=== PATIENT | male | born 1960 | race Caucasian/White ===

== ENCOUNTER → 2016-09-07 | Outpatient (REF) | LOC: WSOH 09:32 | DX: Z02.4 Encounter for examination for driving license (principal) | CPT/HCPCS: G0463 ==

== ENCOUNTER → 2016-09-29 | Outpatient (CLI) | payer BC | LOC: COL.RAD 08:00 | DX: M25.511 Pain in right shoulder (principal) | CPT/HCPCS: J3301; Q9967 ==

== ENCOUNTER → 2016-10-09 | Outpatient (REF) | LOC: WSOH 08:00 | DX: Z00.00 Encounter for general adult medical examination without abnormal findings (principal) ==

== ENCOUNTER → 2016-12-30 | Outpatient (CLI) | payer BC | LOC: COL.RAD 08:03 | DX: M25.511 Pain in right shoulder (principal) | CPT/HCPCS: J3301; Q9967 ==

== ENCOUNTER 2017-04-06 09:24 | Inpatient (IN) | payer BC ==
[~2017-04-06] VITALS: Ht 183 cm; Wt 99.8 kg
[2017-05-14] MEDS ORDERED: CIALIS20 MG PO (09:37)
[2017-05-14] MEDS ORDERED: PRILOSEC 20MG20 MG PO (09:38)
[2017-05-14] MEDS ORDERED: MULTIPLE VITAMI1 CAP PO (09:38)
[2017-05-14] MEDS ORDERED: ASPIRIN 81M81 MG/TA2 PO (09:39)
[2017-05-14] MEDS ORDERED: MASON NATURAL325 MG PO (09:40)
[2017-05-14] MEDS ORDERED: VITAMIN C500 MG PO (09:40)
[2017-05-14] MEDS ORDERED: FOLIC ACID0.4 MG PO (09:41)
[2017-05-14] MEDS ORDERED: XARELTO20 MG PO (09:43)
[2017-05-14] MEDS ORDERED: MUCINEX 60600 MG/TA1 PO (09:44)
[2017-05-14] MEDS ORDERED: CLARITIN 1010 MG/TAB PO (09:44)
[2017-05-21] VITALS (10 sets, daily range): BP systolic 120–138; BP diastolic 77–94; PULSE 17–110; TEMP 98–98.8
[2017-05-22 02:00] VITALS: BP 147/94; PULSE 80; TEMP 98.4
[2017-05-22 06:00] LABS: HEMATOCRIT 42.7 % (42.0-52.0); HEMOGLOBIN 14.3 g/dl (13.5-18.0)
[2017-05-22 06:11] VITALS: BP 132/80; PULSE 74; TEMP 98.5
[2017-05-22 09:58] VITALS: BP 120/94; PULSE 109; TEMP 98.2
== END 2017-05-22 12:33 | disposition home or self-care (01) | DRG 483 ==
LOC: JCC 05-21 07:30 → INPTSU 05-21 07:57 → JCC 05-21 07:57
PROVIDERS: Orthopaedic Surgery
PROC: 0RRJ0JZ Replacement of Right Shoulder Joint with Synthetic Substitute, Open Approach (ICD-10-PCS; principal; 2017-05-21 10:00)
DX: M19.011 Primary osteoarthritis, right shoulder (principal); Z85.820 Personal history of malignant melanoma of skin
CPT/HCPCS: A4315; A9284; C1713; C1776; J0171; J0690; J1100; J1170; J2270; J2405; J2704; J3010; J7120

== ENCOUNTER → 2017-05-04 | Outpatient (CLI) | payer BC ==
[2017-05-04 15:29] LABS: HIV 1/2 Antibodies Non-Reactive; HIV-1p24 Antigen Non-Reactive
[2017-05-04 23:32] LABS: HEPATITIS B SURFACE AB-QL Negative (()); HEPATITIS B SURFACE ANTIBODY <2.0 (())
== END ==
LOC: COL.LAB 14:16
PROVIDERS: Orthopaedic Surgery
DX: Z01.812 Encounter for preprocedural laboratory examination (principal); M19.011 Primary osteoarthritis, right shoulder

== ENCOUNTER 2017-05-14 08:42 | Day surgery (SDC) | payer BC ==
[~2017-05-14] VITALS: Ht 182.9 cm; Wt 101.3 kg
[2017-05-14 09:29] LABS: HEMATOCRIT 45.6 % (42.0-52.0); HEMOGLOBIN 15.5 g/dl (13.5-18.0); MEAN CELL VOLUME 93 fl (80.0-100.0); MEAN CORPUSCULAR HEMOGLOBIN 31 pg (27.0-31.0); MEAN CORPUSCULAR HGB CONC 34 g/dl (33.0-37.0); MEAN PLATELET VOLUME 8.8 fl (7.4-10.4); PLATELET COUNT 254 K/mm3 (130-400); RED BLOOD COUNT 4.93 M/mm3 (4.20-5.60); REDCELL DISTRIBUTION WIDTH-CV 14.2 % (11.5-14.5)
[2017-05-14 09:32] LABS: CALCIUM 9.1 mg/dL (8.4-10.2); CREATININE, serum 0.66 mg/dL (0.66-1.25); POTASSIUM 4.3 mmol/L (3.4-5.0)
[2017-05-14 09:34] LABS: INR 1.1 (0.8-3.0); PROTHROMBIN TIME 13.3 SECONDS (9.7-12.8)
[2017-05-14] MEDS ORDERED: CIALIS20 MG PO (09:37)
[2017-05-14] MEDS ORDERED: MULTIPLE VITAMI1 CAP PO (09:38)
[2017-05-14] MEDS ORDERED: PRILOSEC 20MG20 MG PO (09:38)
[2017-05-14] MEDS ORDERED: ASPIRIN 81M81 MG/TA2 PO (09:39)
[2017-05-14] MEDS ORDERED: VITAMIN C500 MG PO (09:40)
[2017-05-14] MEDS ORDERED: MASON NATURAL325 MG PO (09:40)
[2017-05-14] MEDS ORDERED: FOLIC ACID0.4 MG PO (09:41)
[2017-05-14] MEDS ORDERED: XARELTO20 MG PO (09:43)
[2017-05-14] MEDS ORDERED: MUCINEX 60600 MG/TA1 PO (09:44)
[2017-05-14] MEDS ORDERED: CLARITIN 1010 MG/TAB PO (09:44)
[2017-05-14 09:45] VITALS: BP 111/93; PULSE 82; TEMP 98.1
[2017-05-14 11:00] VITALS: BP 104/82; PULSE 79
[2017-05-14 11:15] VITALS: BP 104/82; PULSE 54
[2017-05-14 11:25] VITALS: BP 124/109; PULSE 55
[2017-05-14 11:45] VITALS: BP 106/85; PULSE 51
== END 2017-05-14 12:28 | disposition home or self-care (01) ==
LOC: COL.CAR 08:42
PROVIDERS: Internal Medicine Cardiovascular Disease
DX: I48.91 Unspecified atrial fibrillation (principal); I34.0 Nonrheumatic mitral (valve) insufficiency; R00.1 Bradycardia, unspecified; Z82.49 Family history of ischemic heart disease and other diseases of the circulatory system; G47.33 Obstructive sleep apnea (adult) (pediatric); K21.9 Gastro-esophageal reflux disease without esophagitis; K44.9 Diaphragmatic hernia without obstruction or gangrene; M19.019 Primary osteoarthritis, unspecified shoulder; Z68.31 Body mass index [BMI] 31.0-31.9, adult; E78.5 Hyperlipidemia, unspecified
CPT/HCPCS: G9654; J2704

== ENCOUNTER 2017-07-15 08:17 | Day surgery (SDC) | payer BC ==
[~2017-07-15] VITALS: Ht 182.9 cm; Wt 101.0 kg
[~2017-07-15 08:17] MED LIST: ASPIRIN 81M81 MG/TA2 PO; CIALIS20 MG PO; CLARITIN 1010 MG/TAB PO; FOLIC ACID0.4 MG PO; MASON NATURAL325 MG PO; MUCINEX 60600 MG/TA1 PO; MULTIPLE VITAMI1 CAP PO; PRILOSEC 20MG20 MG PO; VITAMIN C500 MG PO; XARELTO20 MG PO
[2017-07-15 08:45] LABS: HEMATOCRIT 45.9 % (42.0-52.0); HEMOGLOBIN 15.5 g/dl (13.5-18.0); MEAN CELL VOLUME 95 fl (80.0-100.0); MEAN CORPUSCULAR HEMOGLOBIN 32 pg (27.0-31.0); MEAN CORPUSCULAR HGB CONC 34 g/dl (33.0-37.0); MEAN PLATELET VOLUME 8.5 fl (7.4-10.4); PLATELET COUNT 248 K/mm3 (130-400); RED BLOOD COUNT 4.85 M/mm3 (4.20-5.60); REDCELL DISTRIBUTION WIDTH-CV 13.5 % (11.5-14.5)
[2017-07-15 08:51] LABS: INR 1.2 (0.8-3.0); PROTHROMBIN TIME 14.2 SECONDS (9.7-12.8)
[2017-07-15] MEDS ORDERED: FOLIC ACID 40400 MCG PO (08:51)
[2017-07-15] MEDS ORDERED: ASPIRIN 81M81 MG/TA2 PO (08:52)
[2017-07-15] MEDS ORDERED: NATURAL IRON65 MG PO (08:52)
[2017-07-15] MEDS ORDERED: XARELTO20 MG PO (08:53)
[2017-07-15] MEDS ORDERED: VITAMIN C500 MG PO (08:53)
[2017-07-15 08:54] VITALS: BP 111/67; PULSE 62; TEMP 97.4
[2017-07-15 08:57] LABS: CREATININE, serum 0.63 mg/dL (0.66-1.25); POTASSIUM 4.4 mmol/L (3.4-5.0)
[2017-07-15 09:33] VITALS: BP 110/66; PULSE 66; TEMP 98.7
[2017-07-15 09:48] VITALS: BP 99/92; PULSE 66; TEMP 98
[2017-07-15 10:03] VITALS: BP 115/72; PULSE 65; TEMP 98
[2017-07-15 10:18] VITALS: BP 110/68; PULSE 70; TEMP 98
[2017-07-15 10:48] VITALS: BP 110/68; PULSE 65; TEMP 98
== END 2017-07-15 10:55 | disposition home or self-care (01) ==
LOC: COL.CAR 08:17
PROVIDERS: Internal Medicine Cardiovascular Disease
DX: I48.91 Unspecified atrial fibrillation (principal); R00.1 Bradycardia, unspecified; E78.5 Hyperlipidemia, unspecified; G47.30 Sleep apnea, unspecified; Z82.49 Family history of ischemic heart disease and other diseases of the circulatory system; Z68.31 Body mass index [BMI] 31.0-31.9, adult
CPT/HCPCS: J0330; J2704; J7120

== ENCOUNTER 2019-02-03 12:30 | Inpatient (IN) | payer BC ==
[~2019-02-03] VITALS: Ht 180.3 cm; Wt 99.7 kg
[~2019-02-03 12:30] MED LIST changes: +CEPHALEXIN500 M1 PO; +FOLIC ACID 40400 MCG PO; +NATURAL IRON65 MG PO
[2019-02-15 08:06] VITALS: BP 113/57; PULSE 73; TEMP 97.5
[2019-02-15 08:37] LABS: BASO # 0.1 (0.0-0.2); EOS # 0.1 (0.0-0.7); EOS % 1.4 % (0-4.0); GRAN # 2.3 (1.4-6.5); GRAN % 44.6 % (42.2-75.2); HEMATOCRIT 41.1 % (42.0-52.0); HEMOGLOBIN 13.2 g/dl (13.5-18.0); LYMPH # 2.2 (1.2-3.4); LYMPH % 41.6 % (20.0-51.0); MEAN CELL VOLUME 87 fl (80.0-100.0); MEAN CORPUSCULAR HEMOGLOBIN 28 pg (27.0-31.0); MEAN CORPUSCULAR HGB CONC 32 g/dl (33.0-37.0); MEAN PLATELET VOLUME 8.6 fl (7.4-10.4); MONO # 0.6 (0.1-0.6); MONO % 11.4 % (1.7-9.3); PLATELET COUNT 277 K/mm3 (130-400); REDCELL DISTRIBUTION WIDTH-CV 14.4 % (11.5-14.5)
[2019-02-15 08:44] LABS: INR 1.1 (0.8-3.0); PROTHROMBIN TIME 12.6 SECONDS (9.7-12.8)
[2019-02-15 08:55] LABS: ALBUMIN 4.1 gm/dL (3.5-5.0); BILIRUBIN,TOTAL 0.4 mg/dL (0.0-1.0); CALCIUM 8.8 mg/dL (8.4-10.2); CREATININE, serum 0.67 (0.66-1.25); MAGNESIUM 2.1 mg/dL (1.6-2.3); POTASSIUM 4.4 mmol/L (3.4-5.0); TOTAL PROTEIN 7.6 gm/dL (6.4-8.2)
--- NOTE | 2019-02-15 09:42 | NUR ---
SW met with the patient to discuss discharge plan. The patient lives in [place] with his , Che (ph#[phone]). He reports independence with ADLs and does not have any DME. The patient's PCP is Dr. Prabhjot Mederos and he receives his medications at [facility]. He reports no difficulties obtaining his meds. The patient does not have advanced directives and he was not interested in completing them at this time. The patient plans to return back home with his upon discharge. No additional needs at this time.
--- NOTE | 2019-02-15 09:50 | NUR ---
Patient arrived to room at 0735 accompanied by admission staff. Is sitting up in recliner, explained routine for medicaiton trial to patient, he verbalized understanding. Telemetry was placed, EKG obtained and IV started. Patient is requesting breakfast, Dr. Ennis called to notify that patient has arrived and requesting breakfast, received order for heart healthy diet. Patient has been shown call light system and how to order and call for meals. States he currently has no pain. Respirations are even and nonlabored. Gait is steady, is independent in room. First dose of sotalol administered as documented on JUL. Call light and personal items are within reach.
[2019-02-15 11:24] VITALS: BP 132/83; PULSE 66; TEMP 98.9
--- NOTE | 2019-02-15 12:24 | NUR ---
First visit from the geochemistry teacher. No needs right now.
[2019-02-15 16:20] VITALS: BP 116/88; PULSE 63; TEMP 98.3
[2019-02-15 19:00] VITALS: BP 119/70; PULSE 69; TEMP 98.3
[2019-02-16 00:07] VITALS: BP 100/72; PULSE 61; TEMP 98.2
[2019-02-16 03:55] VITALS: BP 104/68; PULSE 63; TEMP 98.5
[2019-02-16 06:16] LABS: BASO # 0.1 (0.0-0.2); BASO % 1.1 % (0.0-2.0); EOS # 0.1 (0.0-0.7); EOS % 1.8 % (0-4.0); GRAN # 2.7 (1.4-6.5); GRAN % 43.7 % (42.2-75.2); HEMATOCRIT 43.3 % (42.0-52.0); HEMOGLOBIN 13.6 g/dl (13.5-18.0); LYMPH # 2.6 (1.2-3.4); LYMPH % 41.8 % (20.0-51.0); MEAN CELL VOLUME 90 fl (80.0-100.0); MEAN CORPUSCULAR HEMOGLOBIN 28 pg (27.0-31.0); MEAN CORPUSCULAR HGB CONC 31 g/dl (33.0-37.0); MEAN PLATELET VOLUME 8.9 fl (7.4-10.4); MONO # 0.7 (0.1-0.6); MONO % 11.3 % (1.7-9.3); PLATELET COUNT 287 K/mm3 (130-400); RED BLOOD COUNT 4.83 M/mm3 (4.20-5.60); REDCELL DISTRIBUTION WIDTH-CV 14.3 % (11.5-14.5)
[2019-02-16 06:32] LABS: CREATININE, serum 0.75 (0.66-1.25)
[2019-02-16 06:33] LABS: CALCIUM 8.7 mg/dL (8.4-10.2); MAGNESIUM 2.2 mg/dL (1.6-2.3); POTASSIUM 4.3 mmol/L (3.4-5.0)
[2019-02-16 07:35] VITALS: BP 113/77; PULSE 65; TEMP 97.9
--- NOTE | 2019-02-16 08:00 | NUR ---
Pt had uneventful night. Wears own C-pap at night. Shower taken this AM. EKG completed this AM. Voices no c/o today. Call light within reach. Up ad paramjit.
[2019-02-16 11:19] VITALS: BP 98/70; PULSE 64; TEMP 97.3
[2019-02-16 16:48] VITALS: BP 103/73; PULSE 71; TEMP 98.5
[2019-02-16 19:33] VITALS: BP 101/67; PULSE 71; TEMP 98.1
--- NOTE | 2019-02-16 19:49 | NUR ---
Report given to oncoming shift.
--- NOTE | 2019-02-16 20:30 | NUR ---
Initial shift assessment done- denies chest pain, SOB, palpitation, watching TV, no requests, will be NPO after MN. tele on. VSS.
[2019-02-17] VITALS (8 sets, daily range): BP systolic 93–118; BP diastolic 65–81; PULSE 60–72; TEMP 97.4–98.8
--- NOTE | 2019-02-17 06:00 | NUR ---
Quiet night- slept all night with CPAP-no requests, tele on, VSS, no chest pain, NPO
[2019-02-17 06:08] LABS: BASO % 0.7 % (0.0-2.0); EOS # 0.1 (0.0-0.7); EOS % 1.6 % (0-4.0); GRAN # 2.4 (1.4-6.5); GRAN % 42.2 % (42.2-75.2); HEMATOCRIT 42.4 % (42.0-52.0); HEMOGLOBIN 13.6 g/dl (13.5-18.0); LYMPH # 2.5 (1.2-3.4); LYMPH % 43.3 % (20.0-51.0); MEAN CELL VOLUME 88 fl (80.0-100.0); MEAN CORPUSCULAR HEMOGLOBIN 28 pg (27.0-31.0); MEAN CORPUSCULAR HGB CONC 32 g/dl (33.0-37.0); MEAN PLATELET VOLUME 8.6 fl (7.4-10.4); MONO # 0.7 (0.1-0.6); PLATELET COUNT 270 K/mm3 (130-400); RED BLOOD COUNT 4.83 M/mm3 (4.20-5.60)
[2019-02-17 06:18] LABS: CALCIUM 8.8 mg/dL (8.4-10.2); CREATININE, serum 0.78 (0.66-1.25); MAGNESIUM 2.2 mg/dL (1.6-2.3); POTASSIUM 4.1 mmol/L (3.4-5.0)
--- NOTE | 2019-02-17 09:38 | NUR ---
Assessment completed, alert/oriented, vital signs stable, denies any chest pain or discomfort, heart irregular/ paced but still with underlying A.fib, lungs CTA/ no resp.difficulty and denies any SOA or dyspnea, distal pulses are palpable, Qtc 416 this morning and Sotalol dose given, patient is scheduled for Cardioversion today sometime and we will try and contact cardiology to get a time for the patient and his family, patient has been NPO, present, he is indepedendlty in his room and denies other needs at this time
--- NOTE | 2019-02-17 10:59 | NUR ---
patient leaving the floor from Cardioversion at this time, present
[2019-02-17] MEDS ORDERED: BETAPACE 80MG80 MG PO (11:40)
--- NOTE | 2019-02-17 12:05 | NUR ---
patient arrived back to Medical floor from cardioversion, he is alert/oriented, vital signs stable, he is now in sinus rythm
--- NOTE | 2019-02-17 13:48 | NUR ---
Patient discharging home, discussed discharge orders, instructed to follow up with Cardiology as scheduled, instructed to take Sotalol as ordered, IV and tele removed, he is leaving with his , I personally escorted them out the door
== END 2019-02-17 13:50 | disposition home or self-care (01) | DRG 310 ==
LOC: MEDICAL 02-15 07:35
PROVIDERS: Nurse Practitioner; ADMIT Internal Medicine Cardiovascular Disease
PROC: 5A2204Z Restoration of Cardiac Rhythm, Single (ICD-10-PCS; principal; 2019-02-17)
DX: I48.19 Other persistent atrial fibrillation (principal); E78.00 Pure hypercholesterolemia, unspecified; G47.33 Obstructive sleep apnea (adult) (pediatric); K44.9 Diaphragmatic hernia without obstruction or gangrene; J30.2 Other seasonal allergic rhinitis; K21.9 Gastro-esophageal reflux disease without esophagitis; Z79.01 Long term (current) use of anticoagulants; Z95.0 Presence of cardiac pacemaker
CPT/HCPCS: J2704

== ENCOUNTER 2021-05-15 05:09 | Day surgery (SDC) | payer BC ==
[2021-05-15] VITALS (9 sets, daily range): BP systolic 98–120; BP diastolic 69–83; PULSE 70–78; TEMP 97.9–98.1
[~2021-05-15] VITALS: Ht 180.3 cm; Wt 92.8 kg
[~2021-05-15 05:09] MED LIST changes: +BETAPACE 80MG80 MG PO; -MULTIPLE VITAMI1 CAP PO; +MULTIPLE VITAMI1 TA5 PO
[2021-05-15] MEDS ORDERED: NORCO 325 MG-51 TAB PO (08:24)
--- NOTE | 2021-05-15 08:58 | NUR ---
Patient returns to room 7 per cart from PACU accompanied by Jannette SUTTON and is awake and alert. Bandaids on abdomen clean and dry x3. Room air sats 95% and temp 97.8. IV fluids infusing and site is free of redness. Siderails up x2 and call light in reach. Given grape juice to drink. Denies pain or nausea.
--- NOTE | 2021-05-15 09:15 | NUR ---
Sipping on juice and eating toast. Denies pain or nausea.
--- NOTE | 2021-05-15 09:30 | NUR ---
Tolerates food and offers no complaints.
--- NOTE | 2021-05-15 09:45 | NUR ---
Resting and offers no complaints of pain or nausea. Moves self freely around on the cart.
--- NOTE | 2021-05-15 10:00 | NUR ---
Sitting up in chair.
--- NOTE | 2021-05-15 10:30 | NUR ---
IV to INT and ambulates to the bathroom. Gait steady. Dresses self and awaits ride home.
--- NOTE | 2021-05-15 11:30 | NUR ---
Was medicated with [place] 5mg one tab at 1109. Rates pain at 3/10. INT discontinued and site is free of redness. Dismissal instructions were given and patient voices understanding of these. Dismissed to home driven by daughter and taken to the front door per wheelchair and assisted into vehicle with instructions in hand.
== END 2021-05-15 11:30 | disposition home or self-care (01) ==
LOC: SDCO 05:09
DX: K80.12 Calculus of gallbladder with acute and chronic cholecystitis without obstruction (principal); K85.10 Biliary acute pancreatitis without necrosis or infection; I10 Essential (primary) hypertension; I48.91 Unspecified atrial fibrillation; M19.90 Unspecified osteoarthritis, unspecified site; G47.33 Obstructive sleep apnea (adult) (pediatric); Z99.89 Dependence on other enabling machines and devices; Z79.899 Other long term (current) drug therapy; Z95.0 Presence of cardiac pacemaker; Z79.01 Long term (current) use of anticoagulants
CPT/HCPCS: J0690; J1100; J1885; J2370; J2405; J2704; J3010; J7120